=== PATIENT | female | born 1945 | race Asian ===

== ENCOUNTER 2021-07-25 13:17 | Emergency (ER) | payer OTHER ==
[2021-07-25 13:54] VITALS: PULSE 62; TEMP 97.6; BMI 41.3
[2021-07-25] MEDS ORDERED: SODIUM CHLORIDE 0.9% 500 ML INFUS.BAG IV ONE ×2 (14:37→18:36)
[2021-07-25 14:57] LABS: HEMOGLOBIN 16.4 GM/dL (10.7-15.3); MCH 29.6 pg (25.7-33.7); MCHC 31.5 g/dl (32.0-36.0); MEAN CELL VOLUME 93.9 fl (80-96); MEAN PLT VOLUME 9.2 fl (7.5-11.1); PLATELET COUNT 818 10^3/uL (134-434); RBC 5.54 M/mm3 (3.60-5.2); RDW 15.4 % (11.6-15.6); WHITE BLOOD COUNT 18.7 K/mm3 (4.0-10.0)
[2021-07-25 15:34] LABS: CALCIUM 9.7 mg/dL (8.5-10.1)
[2021-07-25 15:35] LABS: ALBUMIN 3.8 g/dl (3.4-5.0); BLOOD UREA NITROGEN 16.6 mg/dL (7-18)
[2021-07-25 15:38] LABS: CREATININE 0.9 mg/dL (0.55-1.3)
[2021-07-25 15:40] LABS: BILIRUBIN,TOTAL 0.6 mg/dL (0.2-1); TOT PROT 8.1 g/dl (6.4-8.2)
[2021-07-25 18:04] LABS: BASO % 0.6 % (0-2.0); EOS % 2.1 % (0-4.5); HEMATOCRIT 48.9 % (32.4-45.2); HEMOGLOBIN 15.5 GM/dL (10.7-15.3); LYMPH % 5.5 % (8-40); MCH 30.1 pg (25.7-33.7); MCHC 31.7 g/dl (32.0-36.0); MEAN PLT VOLUME 9.5 fl (7.5-11.1); MONO % 3.5 % (3.8-10.2); NEUT % 88.3 % (42.8-82.8); PLATELET COUNT 771 10^3/uL (134-434); RBC 5.15 M/mm3 (3.60-5.2); RDW 15.6 % (11.6-15.6); WHITE BLOOD COUNT 17.4 K/mm3 (4.0-10.0)
[2021-07-25] MEDS ORDERED: CEFTRIAXONE 1 GM in DEXTROSE 5%-WATER - 100 ML IVPB ONE (18:33)
[2021-07-25] MEDS ORDERED: CEFTRIAXONE 1 GM/50 ML BAG ONE (18:54)
[2021-07-25 20:32] LABS: EPI CELLS 12 /uL (0-25.1); HYALINE CASTS 1 /uL (0-3.1); URINE APPEARANCE CLEAR; URINE BACTERIA 104 /uL (0-1359); URINE BILIRUBIN NEGATIVE (NEGATIVE); URINE COLOR YELLOW; URINE GLUCOSE (UA) NEGATIVE (NEGATIVE); URINE KETONE NEGATIVE (NEGATIVE); URINE LEUK ESTERASE NEGATIVE (NEGATIVE); URINE NITRITE NEGATIVE (NEGATIVE); URINE PROTEIN 2+ (NEGATIVE); URINE UROBILINOGEN 0.2 mg/dL (0.2-1.0); URINE WBC 6 /uL (0-25.8)
[2021-07-25 21:39] VITALS: BP 138/65
[2021-07-25 22:30] LABS: URINE RBC 35.2 /uL (0-23.9)
== END 2021-07-25 21:41 | disposition home or self-care (01) ==
LOC: JER 13:17
DX: N30.00 Acute cystitis without hematuria (principal)
CPT/HCPCS: 36415; 80053; 81003; 85025; 85027; 87040; 87086; 87186; 99284-25